=== PATIENT | female | born 1960 | race Two or more races ===

== ENCOUNTER 2022-03-04 12:30 | Outpatient (CLI) | payer BC, SELFPAY ==
--- NOTE | ~2022-03-04 | CT_ITS ---
EXAMINATION: CT abdomen pelvis wo con DATE: 03/04/2022 12:53 INDICATION: Hematuria TECHNIQUE: Computed tomography (CT) of the abdomen and pelvis was performed without intravenous contr ast. Automated exposure control and iterative reconstruction technique were employed. The dose-length product was 205.04 mGy-cm. COMPARISON: 03/07/2014 FINDINGS: Lung bases are clear. Heart size is normal. No pericardial or pleural effusion. Small sliding-type hi atal hernia. Multiple hepatic calcific lesions consistent with old granulomatous disease. Cholecystec moses clips at the gallbladder fossa. Spleen, pancreas and bilateral adrenal glands are normal. Kidney s and ureters are normal with no urolithiasis, hydroureteronephrosis or perinephric/ureteral strandin g. There is mild colonic diverticulosis with a sigmoid predominance. There is no adjacent inflammato ry change to suggest diverticulitis. Interval increase in size of a now 5.2 x 3.2 x 3.7 cm macroscopi c fat attenuation lipoma within the ascending colon. No bowel obstruction. Surgical clip at the left adnexa. Coarse calcifications at the periphery of the uterus likely representing chronic degenerated fibroids. Bladder is normal. No free intraperitoneal gas or fluid. No pathologically enlarged abdomin al or pelvic lymphadenopathy. Mild lumbar levocurvature with moderate to severe spondylosis. Unchange d lucent hemangiomas at L2 and L4. IMPRESSION: 1. No urolithiasis. 2. Mild sigmoid diverticulosis. 3. Increase in size of a 5.2 x 3.2 x 3.7 cm lipoma within the ascending colon. 4. Small sliding-type hiatal hernia. Reviewed, dictated and finalized at location A.
== END 2022-03-04 12:31 | disposition home or self-care (01) ==
LOC: ANHIMG 12:32
PROVIDERS: PCP Internal Medicine; Visit Provider Nurse Practitioner
DX: R31.9 Hematuria, unspecified (principal); K57.30 Diverticulosis of large intestine without perforation or abscess without bleeding; K44.9 Diaphragmatic hernia without obstruction or gangrene
CPT/HCPCS: 74176

== ENCOUNTER 2022-04-29 11:41 | Outpatient (CLI) | payer BC, SELFPAY ==
--- NOTE | ~2022-04-29 | XR_ITS ---
XR foot LT 2V DATE: 04/29/2022 12:02 INDICATION: Lateral shooting pain of left foot no injury. TECHNIQUE: AP and lateral views COMPARISON: None FINDINGS: There is hallux valgus and bunion deformity. There is mild osteoarthritis at first metatars ophalangeal joint. There is mild plantar calcaneal enthesopathy. No fracture, dislocation, periosteal reaction or bone destruction is detected. 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
== END 2022-04-29 11:42 | disposition home or self-care (01) ==
PROVIDERS: PCP Internal Medicine; Visit Provider Nurse Practitioner
DX: M19.072 Primary osteoarthritis, left ankle and foot (principal); M20.22 Hallux rigidus, left foot; M77.32 Calcaneal spur, left foot
CPT/HCPCS: 73620

== ENCOUNTER 2023-08-26 13:08 | Emergency (ER) | payer BC, SELFPAY ==
[2023-08-26] VITALS (7 sets, daily range): BP systolic 124–160; BP diastolic 88–110; PULSE 82–110; RESP 16–23; TEMP 36.1; O2SAT 94–97
--- NOTE | ~2023-08-26 | XR_ITS ---
EXAMINATION: XR chest 2V DATE: 08/26/2023 13:45 INDICATION: Chest pain. TECHNIQUE: Frontal and lateral views of the chest were obtained. COMPARISON: Chest 2 views 12/08/2017 FINDINGS: There is no pneumonia, pleural effusion, or pneumothorax. The heart size is normal. Calcifi ed right hilar and mediastinal lymph nodes are consistent with old granulomatous disease. Surgical cl ips in the right upper quadrant are likely from cholecystectomy. IMPRESSION: 1. No acute cardiopulmonary disease. Reviewed, dictated and finalized at location A.
--- NOTE | ~2023-08-26 | NM_ITS ---
EXAMINATION: NM lung vent and perfusion DATE: 08/26/2023 15:13 INDICATION: Right chest pain. Shortness of breath. TECHNIQUE: 19.5 mg 3 xenon-133 was administered for ventilation images. 5.5 mCi Tc-99m MAA was admini stered intravenously for perfusion images. Scintigraphic images of the chest were obtained. COMPARISON: Chest 2 views 08/26/2023, ventilation perfusion scintigraphy 12/08/2017 FINDINGS: Ventilation images are normal. Perfusion images show no defects. IMPRESSION: 1. Pulmonary embolism absent (normal perfusion). Reviewed, dictated and finalized at location A.
--- NOTE | 2023-08-26 13:14 | ECG_ITS ---
Measurements Intervals [place] Rate: 110 P: 10 OK: 170 QRS: -13 QRSD: 97 T: 33 QT: 338 QTc: 458 Interpretive Statements SINUS TACHYCARDIA INFERIOR MYOCARDIAL INFARCTION , OF INDETERMINATE AGE WITH POSTERIOR EXTENSION [40+ ms Q WAVE AND/OR ST/T ABNORMALITY IN II/aV NONSPECIFIC T-WAVE ABNORMALITY ABNORMAL ECG NO PREVIOUS ECG AVAILABLE FOR COMPARISON Electronically Signed On 08-26-2023 15:46:27 CDT by Kel Delacruz M.D.
--- NOTE | 2023-08-26 13:31 | ED.CHESTPAIN ---
HPI - Chest Pain General Chief Complaint: Chest Pain Stated Complaint: rigght sided cp for weeks Time Seen by Provider: 08/26/23 13:18 Source: patient and RN notes reviewed Mode of arrival: ambulatory Limitations: no limitations History of Present Illness HPI narrative: This is a 63 year old female with history of multiple medical problems including fibromyalgia who presents for evaluation right chest pain. She states she has been having sharp right chest pain for 1 month. She reports pain is intermittent radiating to right shoulder. She states this pain started after a colonoscopy so she went to [facility] for evaluation when her pain started. She was evaluated in ER with CT abdomen and pelvis which did no show any perforation or acute issue. She has also been evaluated by a [employer]fter [facility] with a nuclear stress test that was negative. She has been taking tylenol for pain. She denies fever, chills, cough, nausea or vomiting. She denies leg swelling, calf pain. She is going out of town so she want to make sure that she does not have PE. Related Data Home Medications Medication Instructions Recorded Confirmed cetirizine 10 mg tablet (Zyrtec) 10 mg PO DAILY PRN 08/13/23 08/13/23 lansoprazole 15 mg capsule,delayed 15 mg PO DAILY 08/13/23 08/13/23 release (Prevacid 24Hr) magnesium oxide 400 mg PO DAILY 08/13/23 08/13/23 Allergies Allergy/AdvReac Type Severity Reaction Status Date / Time Cephalosporins Allergy Mild Hives Verified 08/26/23 13:35 cefdinir Allergy Unknown Hives Verified 08/26/23 13:35 iodine Allergy Unknown Hives / Verified 08/26/23 13:35 Red Face Penicillins Allergy Unknown Diarrhea Verified 08/26/23 13:35 Sulfa (Sulfonamide Allergy Unknown Diarrhea Verified 08/26/23 13:35 Antibiotics) Contrast Media Allergy Mild Hives Uncoded 08/13/23 13:09 Review of Systems Review of Systems: All systems reviewed & are unremarkable except as noted in HPI and below PMFSH Past Medical History Medical History Allergies Anemia Chronic fatigue Depression Elevated liver enzymes Essential hypertension Fibromyalgia Hallux valgus Hypothyroidism, unspecified Lipoma of colon Overweight Torn rotator cuff Vitamin D deficiency Surgical History Surgical History H/O wrist surgery History of ankle surgery History of cholecystectomy Hx of removal of ovary Status post surgical removal of both fallopian tubes Family History Family History Sibling Hypertension Brain tumor Father Hypertension Grandparent Carcinoma of colon Stomach cancer Social History Social History Smoking status: Never smoker Alcohol intake: current Exam Const: General: no acute distress and alert Nutritional Appearance: well nourished Orientation/consciousness: patient oriented x3 Limitations: no limitations HENMT: Head: normal to inspection Face/Nose/Sinus: Normal external nose present Mouth: Yes Normal oral and palatal mucosa present, Yes lip normal and Yes moist mucous membranes Eyes: Pupils: Equal, round and reactive pupils present EOM: EOMs intact bilaterally Neck: Neck: normal visual inspection Chest: Chest palpation & inspection: normal inspection of the chest Resp: Effort & Inspection: normal respiratory effort Auscultation: clear to auscultation bilaterally Cardio: Rate: regular rate Rhythm: regular rhythm Heart sounds: no murmurs GI: GI Palp: Yes Soft to palpation, No Tenderness to palpation present (GI), No Guarding due to palpation present (GI) and No Rigid due to palpation Auscultation: normal bowel sounds Skin: General skin exam: normal color Rashes: no rashes Wounds: no wounds Neuro: General: patient oriented x3, moves all extremities and CN's II-XI intact bilaterally Extrem: Gen
[2023-08-26 13:36] LABS: Basophils Absolute Auto 0.1 K/mm3 (0.0-0.1); Basophils Percent Auto 0.6 % (0.2-1.2); Eosinophils Absolute Auto 0.4 K/mm3 (0-0.3); Eosinophils Percent Auto 4.4 % (0-4.4); Hematocrit 41.6 % (37.0-47.0); Hemoglobin 14.1 g/dL (12.0-15.0); Immature Granulocyte Absolute 0.02 K/mm3 (0.00-0.031); Immature Granulocyte Percent A 0.2 % (0-0.5); Lymphocytes Absolute Auto 2.97 K/mm3 (0.9-3.2); Lymphocytes Percent Auto 34.7 % (18.3-44.2); Mean Corpuscular HGB Conc 33.9 g/dl (32-36); Mean Corpuscular Hemoglobin 30.8 pg (26-34); Mean Corpuscular Volume 90.8 fl (80-100); Mean Platelet Volume 8.6 fl (7.4-10.4); Monocytes Absolute Auto 0.8 K/mm3 (0.1-0.6); Monocytes Percent Auto 9.8 % (2.6-8.5); Neutrophils Absolute Auto 4.3 K/mm3 (1.3-6.7); Neutrophils Percent Auto 50.3 % (45.5-73.1); Platelet Count Result 276 k/mm3 (150-375); Red Blood Count 4.58 M/mm3 (4.2-5.4); Red Cell Distribution Width 13.1 % (11.5-14.5); White Blood Count 8.6 K/mm3 (4.5-10.0)
[2023-08-26 13:48] LABS: Alanine Aminotransferase 43 U/L (6-35); Alkaline Phosphatase 105 U/L (38-126); Anion Gap 12 mmol/L (8-16); Aspartate Amino Transferase 49 U/L (14-36); Bilirubin,Total 0.7 mg/dL (0.2-1.3); Blood Urea Nitrogen 11 mg/dL (7-17); Calcium 9.3 mg/dL (8.4-10.2); Carbon Dioxide 22 mmol/L (22-30); Chloride 103 mmol/L (98-107); Estimated CRCL calculation 87 ml/min; Estimated Glomerular Filt Rate > 60; Glucose 111 mg/dL (65-110); Lipase 183 U/L (23-300); Potassium 3.5 mmol/L (3.4-5.0); Sodium 137 mmol/L (137-145)
[2023-08-26 13:50] LABS: Prothrombin Time 13.4 Seconds (11.1-14.7)
[2023-08-26 13:55] LABS: Partial Thromboplastin Time 31.8 SECONDS (22.3-36.8)
[2023-08-26 13:59] LABS: Troponin I < 0.012 ng/mL (0.000-0.034)
[2023-08-26 14:01] LABS: D Dimer 1.46 ug/mL (<0.48)
== END 2023-08-26 15:28 | disposition home or self-care (01) ==
PROVIDERS: Emergency Provider General Practice; PCP Internal Medicine
DX: R07.9 Chest pain, unspecified (principal); M79.7 Fibromyalgia; I10 Essential (primary) hypertension; E03.9 Hypothyroidism, unspecified; E55.9 Vitamin D deficiency, unspecified; E66.3 Overweight; Z68.28 Body mass index [BMI] 28.0-28.9, adult; R53.82 Chronic fatigue, unspecified; Z86.2 Personal history of diseases of the blood and blood-forming organs and certain disorders involving the immune mechanism; Z90.49 Acquired absence of other specified parts of digestive tract; Z90.721 Acquired absence of ovaries, unilateral; R00.0 Tachycardia, unspecified; R94.31 Abnormal electrocardiogram [ECG] [EKG]
CPT/HCPCS: 36415; 71046; 78582; 80053; 83690; 84484; 85025; 85380; 85610; 85730; 93005; 99284; A9540; A9558

== ENCOUNTER 2023-12-30 14:58 | Outpatient (CLI) | payer BC, SELFPAY ==
--- NOTE | ~2023-12-30 | XR_ITS ---
EXAMINATION: XR lumbar spine 2-3V DATE: 12/30/2023 15:24 INDICATION: Chronic low back pain TECHNIQUE: Anteroposterior and lateral views of the lumbar spine, and cone-down lateral view of the l umbosacral junction were obtained. COMPARISON: CT dated 03/04/2022 FINDINGS: 20 degrees lumbar levoscoliosis. 3 mm retrolisthesis L1 on L2 and 2 mm retrolisthesis L2 on L3. Verte bral body heights are normal. Moderate to severe left-sided predominant disc height loss at L4-L5. Mo derate disc height loss at L5-S1. Mild to moderate right-sided predominant disc height loss at L1-L2 through L3-L4. Mild disc height loss at T11-T12 and T12-L1. Mild to moderate lower lumbar predominant facet osteoarthritis. Cholecystectomy clips in right upper quadrant and likely dropped clip in the l eft pelvis. IMPRESSION: 1. 20 degrees lumbar levoscoliosis with moderate to severe spondylosis. Reviewed, dictated and finalized at location A. USTER
--- NOTE | ~2023-12-30 | XR_ITS ---
EXAMINATION:XR_CERV2-3V_CR DATE: 12/30/2023 15:24 INDICATION: Chronic neck pain TECHNIQUE: AP, lateral, lateral swimmers and odontoid views of the cervical spine are provided. COMPARISON: 02/08/2015 FINDINGS: Mild cervical levocurvature. Sagittal alignment is normal. Odontoid is intact. Mild atlantoaxial oste oarthritis. Vertebral body heights are normal. Moderate disc height loss with severe bilateral uncove rtebral osteoarthritis at C5-C6. Mild disc height loss with mild bilateral uncovertebral osteoarthrit is at C4-C5. Multilevel moderate to severe cervical facet osteoarthritis. Prevertebral soft tissues a re normal. Visualized upper lungs are clear. IMPRESSION: 1. Slight progression in mild to moderate cervical facet osteoarthritis. Reviewed, dictated and finalized at location A. ADVISOR
== END 2023-12-30 14:59 | disposition home or self-care (01) ==
PROVIDERS: PCP Nurse Practitioner; Visit Provider Nurse Practitioner
DX: M47.896 Other spondylosis, lumbar region (principal); M50.30 Other cervical disc degeneration, unspecified cervical region
CPT/HCPCS: 72040; 72100

== ENCOUNTER 2024-01-04 14:53 | Outpatient (CLI) | payer BC, SELFPAY ==
--- NOTE | ~2024-01-04 | DEXA_ITS ---
Bone Density Report Name: ANITA QUEZADA Age: 63 Sex: Female Ethnicity: White Date of : 1960 Indication: postmenopausal; screening for osteoporosis; height loss; asthma or emphysema; Referring Provider: WINSTON QUINTANA Study: Bone densitometry was performed. Exam Date: January 04, 2024 Accession number: [id number] Bone Density: Region BMD T-score Z-score Classification AP Spine(L1-L4) 0.915 -1.2 0.5 Osteopenia Femoral Neck (Left) 0.663 -1.7 -0.2 Osteopenia Total Hip (Left) 0.885 -0.5 0.7 Normal Femoral Neck (Right) 0.727 -1.1 0.3 Osteopenia Total Hip (Right) 0.921 -0.2 1.0 Normal Total Hip Mean 0.903 -0.4 0.9 Normal World Health Organization criteria for BMD impression classify patients as: Normal (T-score at or above -1.0), Osteopenia (T-score between -1.0 and -2.5), or Osteoporosis (T-score at or below -2.5). 10-year Fracture Risk(1): Major Osteoporotic Fracture 4.8% Hip Fracture 0.5% Reported Risk Factors: [place] (), Neck BMD=0.663, BMI=31.3 (1) FRAX(R) Version 3.08. Fracture probability calculated for an untreated patient. Fracture probability may be lower if the patient has received treatment. Clinical Information Provided by Patient: Has used the following medications: Vitamin D Has the following medical conditions: Asthma or Emphysema Patient maximum height was 66.5 Menopause Age: 46 Does not regularly consume dairy products Drinks caffeinated beverages Onset of menses at age 11 Number of children 0 Impression: The patient has low bone mass, based on the Left Femoral Neck T-score. The patient has an estimated ten-year risk of hip fracture of 0.5% and an estimated ten-year risk of major fracture of 4.8%, based on the WHO FRAX algorithm. Discussion: BONE DENSITY IS LOW AT ONE OR MORE SKELETAL SITES. This patient's lowest T-score is low at one or more skeletal sites. It meets the World Health Organization's (WHO) criteria for ?low bone mass? (T-score between -1.0 and -2.5). The patient's 10-year risk of fracture as calculated by FRAX is less than the threshold where pharmacological therapy is recommended by the National Osteoporosis Foundation (NOF). However, all treatment decisions require clinical judgment and consideration of individual patient factors, including patient preferences, comorbidities, previous drug use, risk factors not captured in the FRAX model (e.g., frailty, falls, vitamin D deficiency, increased bone turnover, interval significant decline in bone density) and possible under or overestimation of fracture risk by FRAX. The patient should follow a healthful lifestyle (good nutrition with adequate calcium and vitamin D, and appropriate weight-bearing exercise). Follow-Up: Consider repeating this study in 2 to 3 years to reassess this
== END 2024-01-04 14:54 | disposition home or self-care (01) ==
PROVIDERS: PCP Nurse Practitioner; Visit Provider Nurse Practitioner
DX: Z78.0 Asymptomatic menopausal state (principal); M85.88 Other specified disorders of bone density and structure, other site; M85.852 Other specified disorders of bone density and structure, left thigh; M85.851 Other specified disorders of bone density and structure, right thigh
CPT/HCPCS: 77080

== ENCOUNTER 2024-01-11 15:18 | Outpatient (CLI) | payer BC, SELFPAY ==
--- NOTE | ~2024-01-11 | MR_ITS ---
EXAMINATION: MR lumbar spine wo con DATE: 01/11/2024 15:48 INDICATION: Spondylosis without myelopathy or radiculopathy. TECHNIQUE: Magnetic resonance imaging (MRI) of the lumbar spine was performed without intravenous con trast. Sequences included sagittal T2-weighted FSE, sagittal T2-weighted FS FSE, sagittal T1-weighted FSE, and axial T2-weighted FSE. COMPARISON: Lumbar spine radiographs 12/30/2023 FINDINGS: There is 9 degrees levocurvature of lumbar spine. Vertebral body heights are normal. There is mildly decreased disc height at L1-L2, L2-L3, and L3-L4 and severely decreased disc height at L4-L 5 and L5-S1. The distal spinal cord signal intensity is normal. The conus medullaris is at L1. The fo llowing disc levels are specifically discussed: L1-L2: The disc is bulging. There is mild left facet joint osteoarthritis. There is mild bilateral ne ural foraminal stenosis. There is mild central canal stenosis. L2-L3: The disc is bulging. There is mild right and severe left facet joint osteoarthritis. There is mild bilateral neural foraminal stenosis. There is mild central canal stenosis. L3-L4: The disc is bulging. There is moderate bilateral facet joint osteoarthritis. There is mild ananya ateral neural foraminal stenosis. There is mild central canal stenosis. L4-L5: The disc is bulging. There is moderate right and severe left facet joint osteoarthritis. There is mild bilateral neural foraminal stenosis. There is mild central canal stenosis. L5-S1: The disc is bulging. There is moderate right and severe left facet joint osteoarthritis. There is mild left neural foraminal stenosis. There is mild central canal stenosis. IMPRESSION: 1. Severe lumbar spondylosis. Reviewed, dictated and finalized at location A. 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
== END 2024-01-11 15:19 | disposition home or self-care (01) ==
PROVIDERS: PCP Nurse Practitioner; Visit Provider Nurse Practitioner
DX: M47.816 Spondylosis without myelopathy or radiculopathy, lumbar region (principal); M41.9 Scoliosis, unspecified
CPT/HCPCS: 72148

== ENCOUNTER 2024-07-13 16:12 | Outpatient (CLI) | payer BC, SELFPAY ==
--- NOTE | ~2024-07-13 | XR_ITS ---
EXAMINATION: XR shoulder RT min 2V DATE: 07/13/2024 16:33 INDICATION: Right shoulder pain. TECHNIQUE: 3 views of right shoulder were obtained. COMPARISON: None. FINDINGS: Alignment is normal. No fracture. There is mild osteoarthritis of glenohumeral joint and mo derate osteoarthritis of acromioclavicular joint. IMPRESSION: 1. Polyarticular osteoarthritis. Reviewed, dictated and finalized at location A.
--- NOTE | ~2024-07-13 | XR_ITS ---
EXAMINATION: XR shoulder LT min 2V DATE: 07/13/2024 16:33 INDICATION: Left shoulder pain. TECHNIQUE: 4 views of left shoulder were obtained. COMPARISON: None. FINDINGS: Alignment is normal. No fracture. Joint spaces are normal. IMPRESSION: 1. Normal shoulder. Reviewed, dictated and finalized at location A. IMPRESSION: 1. Normal shoulder.
== END 2024-07-13 16:13 | disposition home or self-care (01) ==
LOC: ANHIMG 16:15
PROVIDERS: PCP Nurse Practitioner; Visit Provider Anesthesiology Pain Medicine
DX: M15.9 Polyosteoarthritis, unspecified (principal); M25.512 Pain in left shoulder
CPT/HCPCS: 73030

== ENCOUNTER 2024-08-12 12:06 | Outpatient (CLI) | payer BC, SELFPAY ==
--- NOTE | ~2024-08-12 | MR_ITS ---
MRI of the cervical spine Clinical History: Spondylosis Technique: Axial T2-weighted and gradient images, and sagittal T1-weighted, T2-weighted, and STIR maryjo ges were acquired. Findings: There is no fracture or subluxation of the cervical spine. Vertebral bodies maintain normal height and alignment. No suspicious bone marrow signal abnormality seen. At C2-C3, there is no disc bulge or herniation. No spinal canal stenosis, cord compression, or neural foraminal narrowing. At C3-C4, there is no significant disc bulge or herniation. There is right facet arthropathy. No cent ral canal stenosis, cord compression, or left neural foraminal narrowing. Possible minimal right neur al foraminal narrowing. At C4-C5, there is degenerative disc narrowing with minimal disc osteophyte complex. No canal stenosi s or cord compression. Probable mild bilateral neural foraminal narrowing. At C5-C6, there is degenerative disc narrowing with minimal disc osteophyte complex. No canal stenosi s or cord compression. There is bilateral neural foraminal narrowing. At C6-C7, there is moderate to advanced degenerative disc narrowing. There is minimal disc osteophyte complex, especially the left paracentral to left foraminal region. There is bilateral neural foramin al narrowing, left worse than right. No germania canal stenosis or cord compression. No abnormal signal seen in the spinal cord. Paravertebral soft tissues are unremarkable. Impression: Moderate degenerative spondylosis overall, as detailed above. Reviewed, dictated and finalized at [facility]. Impression: Moderate degenerative spondylosis overall, as detailed above.
== END 2024-08-12 12:07 | disposition home or self-care (01) ==
PROVIDERS: PCP Nurse Practitioner; Visit Provider Anesthesiology Pain Medicine
DX: M47.892 Other spondylosis, cervical region (principal)
CPT/HCPCS: 72141

== ENCOUNTER 2024-08-12 12:13 | Outpatient (CLI) | payer BC, SELFPAY ==
--- NOTE | ~2024-08-12 | US_ITS ---
US soft tissue head and neck 08/12/2024 12:59 Indication: Right anterior neck pain Procedure: High-resolution Limited ultrasound of the right neck Comparison: No prior studies for comparison. Findings: Normal heterogeneous echotexture without focal suspicious solid or cystic mass. Visualized aspects of the thyroid gland are unremarkable. Impression: 1: Unremarkable neck soft tissue study. Reviewed, dictated and finalized at location B. Impression: 1: Unremarkable neck soft tissue study.
== END 2024-08-12 12:14 | disposition home or self-care (01) ==
PROVIDERS: PCP Nurse Practitioner; Visit Provider Nurse Practitioner
DX: M54.2 Cervicalgia (principal)
CPT/HCPCS: 76536